=== PATIENT | male | born 1940 | race Caucasian/White ===

== ENCOUNTER 2016-05-13 11:52 | Outpatient (CLI) | payer OTHER ==
--- NOTE | 2016-05-13 13:22 | DIAGNOSTIC IMAGING REPORT ---
PROCEDURE: XR CERVICAL SPINE 4 OR 5 VIEW INDICATION: CHRONIC NECK PAIN TECHNIQUE: Five views. COMPARISON: None. FINDINGS: Spondylosis at C3-4, C4-5 and C5-6. There is a large anterior osteophytic spur at C4-5 and C3-4. There is also a small posterior osteophytic ridge at C4-5. There is neural foraminal impingement bilaterally at C4-5 and C5-6. There is also foraminal impingement at C3-4 on the left. IMPRESSION: 1. Severe cervical spondylosis C3-C6.
== END 2016-05-13 23:00 | disposition home or self-care (01) ==
LOC: XR SRH 11:52
DX: M47.812 Spondylosis without myelopathy or radiculopathy, cervical region (principal)

== ENCOUNTER 2016-05-18 09:51 | Outpatient (CLI) | payer OTHER ==
--- NOTE | 2016-05-18 12:23 | DIAGNOSTIC IMAGING REPORT ---
PROCEDURE: MR BRAIN WITHOUT CONTRAST INDICATION: GAIT IMBALANCE TECHNIQUE: Multiplanar multisequence MRI imaging of the brain without contrast. COMPARISON: None. FINDINGS: The midline structures are normally formed. The ventricular system is normal in size. Basal cisterns are patent. Flow voids in the major intracranial vessels are normal. There is mild frontal lobe atrophy. A few scattered areas of increased signal are seen in the periventricular white matter consistent with small-vessel ischemia. No restricted diffusion to suggest acute ischemia. No evidence of acute or chronic intraparenchymal or extra-axial hemorrhage. No mass, mass effect, or midline shift. Normal signal in the visible bones. The sinuses are normally aerated. Visible extracranial soft tissues including the orbits are normal. IMPRESSION: 1. 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
--- NOTE | 2016-05-18 12:43 | DIAGNOSTIC IMAGING REPORT ---
PROCEDURE: MR CERVICAL SPINE W/O CONT INDICATION: CHRONIC NECK PAIN TECHNIQUE: Noncontrast T1, T2, and STIR sagittal images. T2 and gradient axial images. COMPARISON: None. FINDINGS: The cord is normal in size and signal intensity. C1-2: Normal. C2-3: Normal. C3-4: Mild spondylosis with foraminal narrowing on the right. C4-5: Mild spondylosis with bilateral foraminal narrowing. C5-6: Mild spondylosis with bilateral foraminal narrowing. C6-7: Mild spondylosis with foraminal narrowing on the right C7-T1: Normal. IMPRESSION: 1. Mild spondylosis C3-C7 with the bilateral foraminal narrowing at C4-5 and C5-6. Right sided foraminal compromise at C3-4 and C6-7
== END 2016-05-18 23:00 ==
LOC: MRI SRH 09:51
DX: G31.9 Degenerative disease of nervous system, unspecified (principal); M47.812 Spondylosis without myelopathy or radiculopathy, cervical region